=== PATIENT | female | born 1950 | race Caucasian/White ===

== ENCOUNTER → 2020-07-23 | Outpatient (CLI) | payer MEDICARE ==
[2020-07-23 11:58] LABS: APPEARANCE,URINE CLOUDY (CLEAR); BILIRUBIN,URINE NEGATIVE (NEGATIVE); GLUCOSE, URINE (UA) NEGATIVE (NEGATIVE); KETONES,URINE NEGATIVE (NEGATIVE); LEUKOCYTE ESTERASE ,URINE SMALL (NEGATIVE); NITRATE,URINE NEGATIVE (NEGATIVE); OCCULT BLOOD,URINE NEGATIVE (NEGATIVE); PROTEIN,URINE NEGATIVE (NEGATIVE); UROBILINOGEN,URINE 0.2 mg/dL (<=1.0)
[2020-07-23 12:21] LABS: BACTERIA,URINE None Seen /HPF (None Seen); RBC,URINE None Seen /HPF (0-2); SQUAMOUS EPITHELIAL CELL,UR Moderate /LPF (None Seen)
[2020-07-23 12:36] LABS: MAGNESIUM 2.3 mg/dL (1.80-2.40); PHOSPHORUS 3.1 mg/dL (2.5-4.9)
[2020-07-23 12:37] LABS: HEMOGLOBIN A1C 5.7 % (3.8-5.6)
[2020-07-23 12:46] LABS: % IRON SATURATION 20.7 % (22-44)
[2020-07-23 13:22] LABS: CREATININE,URINE 110.9 mg/dL (30.0-125.0)
[2020-07-23 14:21] LABS: CREATININE 1.35 mg/dL (0.60-1.30)
[2020-07-23 14:31] LABS: CREATININE,SERUM FOR CRCL 1.35 mg/dL (0.60-1.30)
== END | disposition home or self-care (01) ==
LOC: LABPV 09:27
PROVIDERS: ATTEND Internal Medicine Nephrology
DX: I11.0 Hypertensive heart disease with heart failure (principal); I50.9 Heart failure, unspecified; E78.5 Hyperlipidemia, unspecified; R82.998 Other abnormal findings in urine
CPT/HCPCS: 81050; 82565; 82575; 83036; 83540; 83550; 83735; 84100; 84156